=== PATIENT | female | born 1945 | race Caucasian/White ===

== ENCOUNTER → 2020-05-18 | Outpatient (CLI) | payer OTHER ==
[~2020-05-18] MED LIST: AMLO5 PO; CALCAVITD PO; Multiple Vitam1 EAC1 PO; NAPR220 PO; SYNTHROID112 MCG PO
== END | disposition home or self-care (01) ==
LOC: PLD 11:50 → LAB SHORT 11:50
DX: D22.39 Melanocytic nevi of other parts of face (principal)
CPT/HCPCS: 88305

== ENCOUNTER 2021-01-06 11:14 | Inpatient (IN) | payer OTHER, MEDICARE ==
[~2021-01-06] VITALS: Ht 167.6 cm; Wt 86.0 kg
== END 2021-01-08 11:01 | disposition home or self-care (01) | DRG 247 ==
LOC: ER 11:14 → MEDS 11:15 → ER 11:15 → MEDS 15:52 → PCU 18:29 → MEDS 01-07 11:52 → PCU 01-07 11:55 → MEDS 01-07 18:29 → PCU 01-08 11:01
PROVIDERS: ADMIT Internal Medicine
PROC: 027034Z Dilation of Coronary Artery, One Artery with Drug-eluting Intraluminal Device, Percutaneous Approach (ICD-10-PCS; principal; 2021-01-07)
PROC: 4A023N7 Measurement of Cardiac Sampling and Pressure, Left Heart, Percutaneous Approach (ICD-10-PCS; 2021-01-07)
PROC: B2111ZZ Fluoroscopy of Multiple Coronary Arteries using Low Osmolar Contrast (ICD-10-PCS; 2021-01-07)
DX: I25.110 Atherosclerotic heart disease of native coronary artery with unstable angina pectoris (principal); Z20.822 Contact with and (suspected) exposure to COVID-19; E03.9 Hypothyroidism, unspecified; E78.5 Hyperlipidemia, unspecified; I10 Essential (primary) hypertension; Z90.710 Acquired absence of both cervix and uterus; Z88.5 Allergy status to narcotic agent; Z79.899 Other long term (current) drug therapy; Z90.89 Acquired absence of other organs; Z90.722 Acquired absence of ovaries, bilateral
CPT/HCPCS: 0241U; 36415; 71046; 80053; 83690; 83880; 84484; 85025; 93005; 93010; 93306; 93458; 93571; 96372; 99152; 99153; 99285-25; A9270; C1725; C1769; C1874; C1887; C1894; C9600; G0378; J1644; J1650; J2250; J3010; J3246; J7030; J7040; J7050; Q9967

== ENCOUNTER 2021-02-21 11:09 | Emergency (ER) | payer OTHER ==
[~2021-02-21] VITALS: Ht 167.6 cm; Wt 83.9 kg
[~2021-02-21 11:09] MED LIST changes: +ASPI81CH PO; +C COMPLEX1000 M1 PO; +CLOP75 PO; +LOSARTAN POTAS100 MG PO; +METO25ER PO; +ROSUVASTATIN CAL5 MG PO
== END 2021-02-21 14:31 | disposition home or self-care (01) ==
LOC: ER 11:09
DX: S00.83XA Contusion of other part of head, initial encounter (principal); S50.11XA Contusion of right forearm, initial encounter; E03.9 Hypothyroidism, unspecified; Z88.5 Allergy status to narcotic agent; Z79.02 Long term (current) use of antithrombotics/antiplatelets; Z79.82 Long term (current) use of aspirin; Z79.899 Other long term (current) drug therapy; W10.9XXA Fall (on) (from) unspecified stairs and steps, initial encounter
CPT/HCPCS: 70450; 72125; 72131; 73090; 99284-25; A9270

== ENCOUNTER 2023-08-10 06:21 | Day surgery (SDC) | payer OTHER ==
[2023-08-10] VITALS (7 sets, daily range): BP systolic 113–130; BP diastolic 61–88
[~2023-08-10] VITALS: Ht 165.1 cm; Wt 81.8 kg
--- NOTE | 2023-08-10 09:51 | NUR ---
PT RETURNED TO RECOVERY ROOM IN [facility]. RIGHT RADIAL TR BAND SITE SOFT NON-TENDER WITH NO HEMATOMA, NO PULSATILE BLEEDING AND RIGHT WRIST BOARD IN PLACE. PT EATING BREAKFAST; CALL LIGHT IN REACH. PT DENIES CHEST PAIN.
--- NOTE | 2023-08-10 09:59 | NUR ---
NO CHANGES TO R TR BAND.
--- NOTE | 2023-08-10 10:44 | NUR ---
NO CHANGES TO R TR BAND SITE.
--- NOTE | 2023-08-10 11:13 | NUR ---
15 CC OF REMOVED OUT OF NOW DEFLATED RIGHT TR BAND OVER 10 MIN. R RAD SITE SOFT NON-TENDER WITH NO HEMATOMA, NO PULSATILE BLEEDING AND WRIST BOARD IN PLACE. DICHARGE INSTRUCTIONS REVIEWED ALL QUESTIONS ANSWERED.
--- NOTE | 2023-08-10 11:31 | NUR ---
NO CHANGES TO DEFLATED RIGHT TR BAND.
--- NOTE | 2023-08-10 11:46 | NUR ---
NO CHANGES TO DEFLATED R TR BAND.
--- NOTE | 2023-08-10 12:15 | NUR ---
NO CHANGES TO R RADIAL TR BAND SITE; SOFT NON-TENDER WITH NO HEMATOMA, NO PULSATILE BLEEDING. DEFLATED R TR BAND REMOVED AND POLYMEM PLACE OVER RIGHT RADIAL SITE WITH RIGHT WRIST BOARD IN PLACE. 20 IV DISCONTINUED FROM RIGHT AC WITH INTACT CANNULA. PT ESCORTED OUT VIA WHEELCHAIR ESCORT.
== END 2023-08-10 12:15 | disposition home or self-care (01) ==
LOC: MHTC 06:21
DX: I25.118 Atherosclerotic heart disease of native coronary artery with other forms of angina pectoris (principal); I10 Essential (primary) hypertension; E78.5 Hyperlipidemia, unspecified; E03.9 Hypothyroidism, unspecified; Z88.5 Allergy status to narcotic agent; Z79.899 Other long term (current) drug therapy
CPT/HCPCS: 76937; 93458; 99152; C1769; C1887; J1644; J2250; J3010; J7030; J7040; J7050; Q9967

== ENCOUNTER → 2024-01-10 | Outpatient (CLI) | payer OTHER ==
[2024-01-10 11:57] LABS: Stool Occult Blood Guaiac 1 Neg (Neg)
[2024-01-10 11:58] LABS: Stool Occult Blood Guaiac 2 Neg (Neg)
== END | disposition home or self-care (01) ==
LOC: LAB SHORT 06:00 → LAB 06:00 → LAB FUT 01-06 09:25
PROVIDERS: Internal Medicine
DX: M19.90 Unspecified osteoarthritis, unspecified site (principal); D64.9 Anemia, unspecified
CPT/HCPCS: 82272

== ENCOUNTER → 2024-01-24 | Outpatient (CLI) | payer OTHER ==
[2024-01-24 15:28] LABS: BASOPHILS ABSOLUTE AUTO 0.11 K/mm3 (0.00-0.23); BASOPHILS PERCENT AUTO 2 % (0-2); EOSINOPHILS ABSOLUTE AUTO 0.14 K/mm3 (0.00-0.68); EOSINOPHILS PERCENT AUTO 2 % (0-6); Hematocrit 36.7 % (33.0-51.0); Hemoglobin 11.7 g/dL (11.5-16.0); IMMATURE GRAN ABSOLUTE AUTO 0.01 K/mm3 (0.00-0.10); IMMATURE GRAN PERCENT AUTO 0 % (0-1); LYMPHOCYTES ABSOLUTE AUTO 1.82 K/mm3 (0.84-5.20); LYMPHOCYTES PERCENT AUTO 30 % (21-46); MONOCYTES ABSOLUTE AUTO 0.56 K/mm3 (0.16-1.47); MONOCYTES PERCENT AUTO 9 % (4-13); Mean Corpuscular HGB 29.1 pg (26.0-34.0); Mean Corpuscular HGB Conc 31.9 g/dL (31.5-36.5); Mean Corpuscular Volume 91 fL (80-100); Mean Platelet Volume 9.9 fL (9.1-12.4); NEUTROPHILS ABSOLUTE AUTO 3.51 K/mm3 (1.96-9.15); NEUTROPHILS PERCENT AUTO 57 % (41-73); Platelet Count 361 K/mm3 (150-400); RDW Coefficient Variation 14.9 % (11.7-14.2); RDW Standard Deviation 49.4 fL (35.1-46.3); Red Blood Cell Count 4.02 M/mm3 (3.80-5.20); White Blood Cell Count 6.15 K/mm3 (4.00-11.30)
== END ==
LOC: LAB SHORT 12:51 → LAB 12:51 → LAB FUT 01-06 10:00
PROVIDERS: Internal Medicine
DX: M19.90 Unspecified osteoarthritis, unspecified site (principal); D64.9 Anemia, unspecified
CPT/HCPCS: 36415; 85025

== ENCOUNTER 2024-03-22 18:34 | Emergency (ER) | payer OTHER ==
[~2024-03-22] VITALS: Ht 167.6 cm; Wt 81.7 kg
[2024-03-22 18:44] VITALS: BP 163/74
[2024-03-22 19:37] LABS: Influenza A, PCR NEGATIVE (NEGATIVE); Influenza B, PCR NEGATIVE (NEGATIVE); Resp Syncytial Virus, PCR NEGATIVE (NEGATIVE); SARS-Cov-2 (COVID-19) PCR, MMC NEGATIVE (NEGATIVE)
[2024-03-22 21:11] LABS: BASOPHILS ABSOLUTE AUTO 0.08 K/mm3 (0.00-0.23); BASOPHILS PERCENT AUTO 1 % (0-2); EOSINOPHILS ABSOLUTE AUTO 0.13 K/mm3 (0.00-0.68); EOSINOPHILS PERCENT AUTO 1 % (0-6); Hematocrit 38.5 % (33.0-51.0); Hemoglobin 12.7 g/dL (11.5-16.0); IMMATURE GRAN ABSOLUTE AUTO 0.07 K/mm3 (0.00-0.10); IMMATURE GRAN PERCENT AUTO 1 % (0-1); LYMPHOCYTES ABSOLUTE AUTO 1.94 K/mm3 (0.84-5.20); LYMPHOCYTES PERCENT AUTO 19 % (21-46); MONOCYTES ABSOLUTE AUTO 1.56 K/mm3 (0.16-1.47); MONOCYTES PERCENT AUTO 15 % (4-13); Mean Corpuscular HGB 29.4 pg (26.0-34.0); Mean Corpuscular Volume 89 fL (80-100); Mean Platelet Volume 10.1 fL (9.1-12.4); NEUTROPHILS ABSOLUTE AUTO 6.61 K/mm3 (1.96-9.15); NEUTROPHILS PERCENT AUTO 64 % (41-73); Platelet Count 408 K/mm3 (150-400); RDW Coefficient Variation 15.9 % (11.7-14.2); RDW Standard Deviation 52.7 fL (35.1-46.3); Red Blood Cell Count 4.32 M/mm3 (3.80-5.20); White Blood Cell Count 10.39 K/mm3 (4.00-11.30)
[2024-03-22 21:21] LABS: Bun/Creatinine Ratio 21.8 (12.0-20.0); Calcium, Blood 8.7 mg/dL (8.5-10.1); Creatinine, Blood 0.64 mg/dL (0.40-1.00); Potassium, Blood 3.2 mmol/L (3.5-5.5)
[2024-03-22] MEDS ORDERED: Benzonatate 100 MG Cap PO ONE (21:35)
[2024-03-22] MEDS ORDERED: Azithromycin 250 MG Tab PO ONE (21:35)
[2024-03-22] MEDS ORDERED: AZIT250 PO (21:36)
[2024-03-22] MEDS ORDERED: BENZ100A PO (21:36)
[2024-03-22] MEDS ORDERED: ALBU90OI INH (21:36)
[2024-03-22] MEDS ORDERED: Ondansetron 4 MG SoluTab SL ONE (22:05)
== END 2024-03-22 22:09 | disposition home or self-care (01) ==
LOC: ER 18:34
PROVIDERS: Emergency Medicine
DX: J18.9 Pneumonia, unspecified organism (principal); E87.6 Hypokalemia; I10 Essential (primary) hypertension; E03.9 Hypothyroidism, unspecified; Z79.82 Long term (current) use of aspirin; Z79.890 Hormone replacement therapy; Z79.899 Other long term (current) drug therapy; Z88.5 Allergy status to narcotic agent
CPT/HCPCS: 0241U; 71046; 80048; 85025; 99284-25; A9270

== ENCOUNTER 2024-06-19 05:57 | Day surgery (SDC) | payer OTHER ==
[2024-06-19] VITALS (21 sets, daily range): BP systolic 94–151; BP diastolic 55–88
[~2024-06-19] VITALS: Ht 165.1 cm; Wt 80.9 kg
[~2024-06-19 05:57] MED LIST changes: +ALBU90OI INH; +ALLER-CLEAR PO; +AZIT250 PO; +BENZ100A PO; +Calcium Carbon500 MG PO; +MULVITA PO; +PANT40 PO; +Preservision S1 EACH PO; +VITAMIN D310 MC4 PO
[2024-06-19] MEDS ORDERED: Ropivacaine 0.5% HCl/Pf 123.125 MG,EPINEPHrine HCL 0.25 MG,Ketorolac Tromethamine 15 MG... INFIL SCH (06:30)
[2024-06-19] MEDS ORDERED: Acetaminophen 500 MG Tab PO SCH (06:30)
[2024-06-19] MEDS ORDERED: OxyCODONE HCL 10 MG TABCR PO SCH (06:30)
[2024-06-19] MEDS ORDERED: CeFAZolin Sodium 2,000 MG in NS 100 ML IV SCH (06:30)
[2024-06-19] MEDS ORDERED: Chlorhexidine Mouth Care 15 ML UDC MT SCH (06:30)
[2024-06-19] MEDS ORDERED: Lactated Ringer's 1,000 ML IV SCH (06:30)
[2024-06-19] MEDS ORDERED: Tranexamic Acid 100 ML IV SCH (06:33)
[2024-06-19] MEDS ORDERED: Bupivacaine 0.5% HCl 5 MG/ML 30MLVIAL ONE (07:26)
[2024-06-19] MEDS ORDERED: Etomidate 2MG / ML 10ML Vial ONE (07:39)
[2024-06-19] MEDS ORDERED: FentaNYL Citrate 50 MCG/ML 2 ML Injection ONE ×3 (07:40→10:35)
[2024-06-19] MEDS ORDERED: SuccINYLCHOLINE Chloride 100 MG/5 ML 5MLSYR ONE ×2 (07:41→08:23)
[2024-06-19] MEDS ORDERED: Rocuronium Bromide 10 MG/ML 5ML Injection IV ONE ×2 (07:41→08:23)
[2024-06-19] MEDS ORDERED: Ondansetron HCl 2 MG / ML 2ML Vial ONE (08:43)
[2024-06-19] MEDS ORDERED: Dexamethasone Sod Phos 10 MG/ML 1ML VIAL ONE (08:43)
[2024-06-19] MEDS ORDERED: Sugammadex Sodium 200 MG/2ML SDV (100 MG/ML) ONE (09:39)
[2024-06-19] MEDS ORDERED: HYDROcodone 5-APAP 325 TAB PO PRN (10:20)
[2024-06-19] MEDS ORDERED: Prochlorperazine Edisylate 10 mg Vial ONE (10:34)
[2024-06-19] MEDS ORDERED: HYDROmorphone HCl/Pf 1MG SYR ONE (10:35)
[2024-06-19] MEDS ORDERED: Lactated Ringer's 1,000 ML IV ONE (10:48)
--- NOTE | 2024-06-19 16:23 | NUR ---
DISCHARGE SUMMARY PT BROUGHT OUT FROM PACU FOR EXTENDED RECOVERY ON 2L NC, VERY SOMNOLENT AT ARRIVAL BUT WAKES TO VERBAL STIMULI. POST OP VITALS DONE, NOTHING GIVEN FOR PAIN, PT WAS ALLOWED TO REST AND WAS TITRATED DOWN TO ROOM AIR. AFTER TITRATING TO RA AND CONFIRMING PT WAS NOT HAVING ANY PAIN CONCERNS SHE WAS ALLOWED TO GET DRESSED AND WAS GIVEN DISCHARGE PAPERS FROM DAY SURGERY, ESCORTED TO HER CAR VIA WC TO GO HOME.
[2024-06-24] MEDS ORDERED: PLAVIX75 MG PO (08:58)
[2024-06-24] MEDS ORDERED: Voltaren100 GM TOP (09:00)
[2024-06-24] MEDS ORDERED: KETO.5OPSO RIGHTEYE (09:01)
[2024-06-24] MEDS ORDERED: NITR.4SL SL (09:03)
== END 2024-06-19 15:13 | disposition home health service (06) ==
LOC: ORSCMMR 05:57 → ORD 08:00 → ORSCMMR 08:00 → SURS 11:45 → ORSCMMR 15:13 → SURS 15:13
PROVIDERS: Orthopaedic Surgery
PROC: 0RRK00Z Replacement of Left Shoulder Joint with Reverse Ball and Socket Synthetic Substitute, Open Approach (ICD-10-PCS; principal; 2024-06-19 08:00)
DX: M19.012 Primary osteoarthritis, left shoulder (principal); I10 Essential (primary) hypertension; K21.9 Gastro-esophageal reflux disease without esophagitis; E03.9 Hypothyroidism, unspecified; Z79.899 Other long term (current) drug therapy; Z79.82 Long term (current) use of aspirin
CPT/HCPCS: 73030; A9270; C1713; C1776; J0171; J0330; J0690; J0735; J0780; J1100; J1170; J1885; J2405; J2795; J3010; J7120

== ENCOUNTER 2024-07-03 08:34 | Day surgery (SDC) | payer OTHER ==
[~2024-07-03] VITALS: Ht 167.6 cm; Wt 78.8 kg
[~2024-07-03 08:34] MED LIST changes: +Balanced Salt Epinephrine Irrigation Solution 500 mL IR SCH; +KETO.5OPSO RIGHTEYE; +Lidocaine HCl/Pf 1% 5 ML VIAL XX SCH; +Moxifloxacin HCL 0.5 MG/0.1 ML 0.4MLSYR RIGHTEYE SCH; +NITR.4SL SL; +NS 500 ML IV ONE; +PHENYLEPHRINE\\TROPICAMIDE\\TETRACAINE OPHTHALMIC DILATING SOLN RIGHTEYE PRN; +PLAVIX75 MG PO; +Povidone-Iodine 450 DROP/30 ML Solution ONE; +Povidone-Iodine 450 DROP/30 ML Solution RIGHTEYE SCH; +Tetracaine HCl/Pf 0.5% Opth Soln 4 ml ONE; +Triamcinolone Inj Susp 40 MG / ML 1ML Vial INJ SCH; +Triamcinolone Inj Susp 40 MG / ML 1ML Vial ONE; +Voltaren100 GM TOP
[2024-07-03] MEDS ORDERED: NS 500 ML IV ONE (09:20)
[2024-07-03] MEDS ORDERED: Midazolam HCl 1MG / ML 2ML Vial ONE (09:28)
[2024-07-03 09:59] VITALS: BP 156/65
[2024-07-08] MEDS ORDERED: Calcium Acetat667 MG PO (08:50)
[2024-07-08] MEDS ORDERED: Crestor40 MG PO (08:50)
[2024-07-08] MEDS ORDERED: PRESERVISION A1 EAC5 PO (08:50)
== END 2024-07-03 10:15 | disposition home or self-care (01) ==
LOC: ORSCSDS 08:34
PROVIDERS: Ophthalmology
PROC: 08RJ3JZ Replacement of Right Lens with Synthetic Substitute, Percutaneous Approach (ICD-10-PCS; principal; 2024-07-03 10:00)
DX: H25.813 Combined forms of age-related cataract, bilateral (principal); I10 Essential (primary) hypertension; I25.10 Atherosclerotic heart disease of native coronary artery without angina pectoris; K21.9 Gastro-esophageal reflux disease without esophagitis; Z79.899 Other long term (current) drug therapy
CPT/HCPCS: J2250; J3301; J7040; V2632

== ENCOUNTER → 2024-07-07 | Outpatient (CLI) | payer OTHER ==
[~2024-07-07] MED LIST changes: -Balanced Salt Epinephrine Irrigation Solution 500 mL IR SCH; +Calcium Acetat667 MG PO; +Crestor40 MG PO; -Lidocaine HCl/Pf 1% 5 ML VIAL XX SCH; -Moxifloxacin HCL 0.5 MG/0.1 ML 0.4MLSYR RIGHTEYE SCH; -NS 500 ML IV ONE; -PHENYLEPHRINE\\TROPICAMIDE\\TETRACAINE OPHTHALMIC DILATING SOLN RIGHTEYE PRN; +PRESERVISION A1 EAC5 PO; -Povidone-Iodine 450 DROP/30 ML Solution ONE; -Povidone-Iodine 450 DROP/30 ML Solution RIGHTEYE SCH; -Tetracaine HCl/Pf 0.5% Opth Soln 4 ml ONE; -Triamcinolone Inj Susp 40 MG / ML 1ML Vial INJ SCH; -Triamcinolone Inj Susp 40 MG / ML 1ML Vial ONE
== END | disposition home or self-care (01) ==
LOC: LAB 14:52 → LAB SHORT 14:52
DX: R30.0 Dysuria (principal)
CPT/HCPCS: 87086

== ENCOUNTER 2024-07-17 08:43 | Day surgery (SDC) | payer OTHER ==
[~2024-07-17] VITALS: Ht 167.6 cm; Wt 77.0 kg
[~2024-07-17 08:43] MED LIST changes: +Balanced Salt Epinephrine Irrigation Solution 500 mL IR SCH; +Lidocaine HCl/Pf 1% 5 ML VIAL XX SCH; +Moxifloxacin HCL 0.5 MG/0.1 ML 0.4MLSYR LEFTEYE SCH; +NS 500 ML IV ONE; +PHENYLEPHRINE\\TROPICAMIDE\\TETRACAINE OPHTHALMIC DILATING SOLN LEFTEYE PRN; +Povidone-Iodine 450 DROP/30 ML Solution LEFTEYE SCH; +Povidone-Iodine 450 DROP/30 ML Solution ONE; +Tetracaine HCl/Pf 0.5% Opth Soln 4 ml ONE; +Triamcinolone Inj Susp 40 MG / ML 1ML Vial INJ SCH; +Triamcinolone Inj Susp 40 MG / ML 1ML Vial ONE
[2024-07-17] MEDS ORDERED: NS 1,000 ML IV ONE (09:56)
[2024-07-17] MEDS ORDERED: Tetracaine HCl 0.5% Opth Soln 15 ml LEFTEYE ONE (10:13)
[2024-07-17] MEDS ORDERED: Midazolam HCl 1MG / ML 2ML Vial ONE (10:14)
[2024-07-17] MEDS ORDERED: Labetalol HCL 5 MG/ML 4ML Injection (Single Dose) ONE (10:15)
--- NOTE | 2024-07-17 10:55 | NUR ---
07/17/24 1055 Garcia Betancourt PT INSTRUCTED TO MONITOR B/P AT HOME, AND FOLLOW UP WITH PCP, IF NEEDED.
[2024-07-17 10:58] VITALS: BP 136/58
--- NOTE | 2024-07-17 13:45 | NUR ---
07/17/24 1345 Go Harris, FLUIDS CHARTED INCORRECTLY IN COMPUTER. FLUIDS STARTED WAS [id number] IN PRE-OP.
== END 2024-07-17 10:54 | disposition home or self-care (01) ==
LOC: ORSCSDS 08:43
PROVIDERS: Ophthalmology
PROC: 08RK3JZ Replacement of Left Lens with Synthetic Substitute, Percutaneous Approach (ICD-10-PCS; principal; 2024-07-17 10:30)
DX: H25.812 Combined forms of age-related cataract, left eye (principal); Z96.1 Presence of intraocular lens; H35.30 Unspecified macular degeneration; I10 Essential (primary) hypertension; E78.5 Hyperlipidemia, unspecified; E03.9 Hypothyroidism, unspecified; I25.10 Atherosclerotic heart disease of native coronary artery without angina pectoris; Z79.82 Long term (current) use of aspirin; Z79.899 Other long term (current) drug therapy; Z87.891 Personal history of nicotine dependence
CPT/HCPCS: J2250; J3301; J7040; V2632